=== PATIENT | male | born 1975 | race Caucasian/White ===

== ENCOUNTER 2021-10-02 17:16 | Emergency (ER) | payer OTHER, SELFPAY ==
--- NOTE | ~2021-10-02 | XR_ITS ---
EXAMINATION: XR chest 1V portable DATE: 10/02/2021 19:05 INDICATION: COVID positive. Weakness. TECHNIQUE: frontal view of the chest was obtained. COMPARISON: None FINDINGS: Linear and subtle patchy airspace opacities in the bilateral lower lung zones. No pleural effusion or pneumothorax. The cardiomediastinal silhouette is normal. Visualized bones and soft tissues are unre markable. IMPRESSION: 1. Linear and subtle patchy airspace opacities in the bilateral lower lung zones which could represen t COVID pneumonia, atelectasis, mild pulmonary edema or some combination thereof. Reviewed, dictated and finalized at location . S [employer] IMPRESSION: 1. Linear and subtle patchy airspace opacities in the bilateral lower lung zone s which could represent COVID pneumonia, atelectasis, mild pulmonary edema or s ome combination thereof.
[2021-10-02 17:34] VITALS: BP 98/70; PULSE 92; RESP 18; TEMP 36.7; O2SAT 95
[2021-10-02 18:22] VITALS: BP 107/79; PULSE 68; RESP 16; O2SAT 97
--- NOTE | 2021-10-02 19:24 | PC.NURSE ---
Report received from DWAYNE Madrigal. Assumed care of patient at this time.
[2021-10-02 19:34] VITALS: BP 102/78; BP 105/73; BP 99/75; PULSE 63; PULSE 74; PULSE 87
[2021-10-02] MEDS: SODIUM CHLORIDE 0.9% IV 1,000 ML 999 ML IV CONT (19:37)
[2021-10-02 19:41] LABS: Basophils Percent Auto 0.3 % (0.2-1.2); Eosinophils Percent Auto 0.3 % (0-4.4); Hematocrit 40.1 % (42.0-52.0); Hemoglobin 13.8 g/dL (14.0-18.0); Immature Granulocyte Absolute 0.01 K/mm3 (0.00-0.031); Immature Granulocyte Percent A 0.3 % (0-0.5); Immature Platelet Fraction Pct 9.8 % (0.9-11.2); Lymphocytes Absolute Auto 0.92 K/mm3 (0.9-3.2); Lymphocytes Percent Auto 23.7 % (18.3-44.2); Mean Corpuscular HGB Conc 34.4 g/dl (32-36); Mean Corpuscular Hemoglobin 29.9 pg (26-34); Mean Corpuscular Volume 86.8 fl (80-100); Mean Platelet Volume 11.4 fl (7.4-10.4); Monocytes Absolute Auto 0.5 K/mm3 (0.1-0.6); Monocytes Percent Auto 13.4 % (2.6-8.5); Neutrophils Absolute Auto 2.4 K/mm3 (1.3-6.7); Platelet Count Result 121 k/mm3 (150-375); Red Blood Count 4.62 M/mm3 (4.6-6.20); Red Cell Distribution Width 13.1 % (11.5-14.5); White Blood Count 3.9 K/mm3 (4.5-10.0)
--- NOTE | 2021-10-02 19:51 | ED.GENADULT ---
HPI - General Adult General Chief complaint: Weakness Stated complaint: covid + (09/23), fatigue Time Seen by Provider: 10/02/21 18:58 History of Present Illness HPI narrative: Patient is a 46-year-old male who presents to the ER with weakness. Diagnosed 09/23/2021. Reports he has had fevers and chills. He has also had a cough and shortness of breath. Today he was getting dizzy when he got up reports this is a new change. Patient reports chronic history of low blood pressure. Reports he is otherwise healthy. Related Data Home Medications Medication Instructions Recorded Confirmed No Home Medications 10/02/21 10/02/21 Allergies Allergy/AdvReac Type Severity Reaction Status Date / Time No Known Allergies Allergy Mild Verified 10/02/21 18:24 Review of Systems Review of Systems: All systems reviewed & are unremarkable except as noted in HPI and below Constitutional: Constitutional: Reports chills, Reports fever(s) and Reports weakness ENT: Reports nasal congestion and Denies sore throat Comments: Loss of taste and smell Cardiovascular: Cardiovascular: Denies chest pain, Denies rapid heart rate and Denies radiating jaw, neck or arm pain Respiratory: Respiratory: Reports cough, Reports dyspnea and Denies wheezing Gastrointestinal: Gastrointestinal: Denies nausea and Denies vomiting PMFSH Past Medical History Medical History (Updated 10/02/21 @ 22:13 by Francois Boss MD) Chronic low blood pressure Surgical History Surgical History (Updated 10/02/21 @ 19:53 by Francois Boss MD) No history of previous surgery Social History Social History (Updated 10/02/21 @ 19:53 by Francois Boss MD) Smoking status: Never smoker Exam Narrative: GENERAL: Well-appearing, well-nourished, and in no acute distress. HEAD: Normocephalic, atraumatic. EYES: PERRL and EOMI. CHEST: Clear to auscultation. No respiratory distress. HEART: Regular rate and rhythm. Normal peripheral pulses. ABDOMEN: Soft, nontender, nondistended. EXTREMITIES: Normal range of motion. No edema. SKIN: Warm, dry, no rash. NEURO: Alert and oriented x3. PSYCH: Normal mood and affect. Course Course Emergency Course: Patient informed of results. Hydrated. No hypoxia. Vital Signs Vital signs: Vital Signs Temperature 98.0 F 10/02/21 17:34 Pulse Rate 92 10/02/21 17:34 Respiratory Rate 18 10/02/21 17:34 Blood Pressure 98/70 L 10/02/21 17:34 Pulse Oximetry 95 10/02/21 17:34 Temperature 98.0 F 10/02/21 17:34 Pulse Rate 87 10/02/21 19:34 Respiratory Rate 16 10/02/21 18:22 Blood Pressure 99/75 L 10/02/21 19:34 Pulse Oximetry 97 10/02/21 18:22 Medical Decision Making Vital Signs Vital Signs: Vital Signs Temperature 98.0 F 10/02/21 17:34 Pulse Rate 92 10/02/21 17:34 Respiratory Rate 18 10/02/21 17:34 Blood Pressure 98/70 L 10/02/21 17:34 Pulse Oximetry 95 10/02/21 17:34 Temperature 98.0 F 10/02/21 17:34 Pulse Rate 87 10/02/21 19:34 Respiratory Rate 16 10/02/21 18:22 Blood Pressure 99/75 L 10/02/21 19:34 Pulse Oximetry 97 10/02/21 18:22 Lab Data Result diagrams: 10/02/21 19:34 10/02/21 19:34 Labs: Lab Results 10/02/21 10/02/21 Range/Units 19:34 19:34 WBC 3.9 L (4.5-10.0) K/mm3 RBC 4.62 (4.6-6.20) M/mm3 Hgb 13.8 L (14.0-18.0) g/dL Hct 40.1 L (42.0-52.0) % MCV 86.8 (80-100) fl MCH 29.9 (26-34) pg MCHC 34.4 (32-36) g/dl RDW 13.1 (11.5-14.5) % Plt Count 121 L (150-375) k/mm3 MPV 11.4 H (7.4-10.4) fl Immature Gran % (Auto) 0.3 (0-0.5) % Neut % (Auto) 62.0 (45.5-73.1) % Lymph % (Auto) 23.7 (18.3-44.2) % Robeson % (Auto) 13.4 H (2.6-8.5) % Eos % (Auto) 0.3 (0-4.4) % Baso % (Auto) 0.3 (0.2-1.2) % Lymph # (Auto) 0.92 (0.9-3.2) K/mm3 Robeson # (Auto) 0.5 (0.1-0.6) K/mm3 Eos # (Auto) 0.0 (0-0.3) K/mm3 Baso # (Auto) 0.0 (0.0-0.1) K/mm3 Abs Imm
[2021-10-02 19:52] LABS: Alanine Aminotransferase 44 U/L (4-50); Albumin Level 3.9 g/dL (3.5-5.1); Alkaline Phosphatase 82 U/L (38-126); Anion Gap 5 mmol/L (8-16); Aspartate Amino Transferase 58 U/L (17-59); Bilirubin,Total 0.3 mg/dL (0.2-1.3); Blood Urea Nitrogen 10 mg/dL (9-20); Calcium 8.5 mg/dL (8.4-10.2); Carbon Dioxide 27 mmol/L (22-30); Chloride 98 mmol/L (98-107); Estimated CRCL calculation 109 ml/min; Estimated Glomerular Filt Rate > 60; Glucose 107 mg/dL (65-110); Potassium 3.7 mmol/L (3.4-5.0); Sodium 130 mmol/L (137-145)
[2021-10-02 20:00] LABS: NT Pro B Type Natriuretic Pept 46 pg/mL (5-100)
[2021-10-02 22:21] VITALS: PULSE 81; RESP 18; O2SAT 98
== END 2021-10-02 22:29 | disposition home or self-care (01) ==
PROVIDERS: Emergency Provider Emergency Medicine
DX: U07.1 COVID-19 (principal); J12.82 Pneumonia due to coronavirus disease 2019; E86.0 Dehydration
CPT/HCPCS: 36415; 71045; 80053; 83880; 85025; 85055; 96360; 99283; J7030